=== PATIENT | female | born 1950 ===

== ENCOUNTER 2018-02-02 13:34 | Emergency (ER) | payer OTHER ==
[2018-02-02 14:30] LABS: BASO # 0.1 K/uL (0.0-0.2); BASO % 1.1 % (0.0-2.0); EOS # 0.1 K/uL (0.0-0.7); EOS % 1.4 % (0.0-4.0); HEMOGLOBIN 13.8 g/dL (11.0-16.0); LYMPH # 1.8 K/uL (1.0-4.3); LYMPH % 22.6 % (20.0-40.0); MEAN CELL VOLUME 88.4 fL (81.0-99.0); MEAN CORPUSCULAR HEMOGLOBIN 30.1 pg (27.0-31.0); MONO # 0.8 K/uL (0.0-0.8); MONO % 9.6 % (0.0-10.0); NEUT # 5.1 K/uL (1.8-7.0); NEUT % 65.3 % (50.0-75.0); NRBC % 0.1 % (0.0-2.0); RBC 4.59 Mil/uL (3.80-5.20); RED CELL DISTRIBUTION WIDTH 13.2 % (11.5-14.5); WHITE BLOOD COUNT 7.8 K/uL (4.8-10.8)
[2018-02-02 14:37] LABS: PROTHROMBIN TIME 11.5 SECONDS (9.7-12.2)
[2018-02-02 14:48] LABS: ALBUMIN 3.6 g/dL (3.5-5.0); CALCIUM 8.9 mg/dl (8.6-10.4)
--- NOTE | 2018-02-02 15:50 | C.PDOC ---
History Of Present Illness Pt c/o lower extremity pain R>L. Time Seen by Provider: 02/02/18 13:54 Chief Complaint (Nursing): Lower Extremity Problem/Injury History Per: Patient, Family Onset/Duration Of Symptoms: Days (years) Current Symptoms Are (Timing): Still Present Severity: Moderate Additional History Per: Prior Records Past Medical History Reviewed: Historical Data, Nursing Documentation, Vital Signs Vital Signs: Last Vital Signs Temp 99 F 02/02/18 15:12 Pulse 92 H 02/02/18 15:12 Resp 18 02/02/18 15:12 BP 189/110 H 02/02/18 15:12 Pulse Ox 95 02/02/18 15:12 - Medical History PMH: Diabetes, HTN, Hypercholesterolemia Family History: States: Unknown Family Hx - Social History Hx Alcohol Use: No Hx Substance Use: No - Immunization History Hx Tetanus Toxoid Vaccination: No Hx Influenza Vaccination: Yes (2016) Hx Pneumococcal Vaccination: No Review Of Systems Except As Marked, All Systems Reviewed And Found Negative. Constitutional: Negative for: Fever Cardiovascular: Negative for: Chest Pain Respiratory: Negative for: Shortness of Breath Gastrointestinal: Negative for: Abdominal Pain Genitourinary: Negative for: Dysuria, Incontinence Musculoskeletal: Positive for: Leg Pain. Negative for: Neck Pain, Back Pain Skin: Negative for: Rash Neurological: Negative for: Weakness, Numbness Physical Exam - Physical Exam Appears: Non-toxic, No Acute Distress Skin: Normal Color, Warm, Dry, No Rash Head: Atraumatic, Normacephalic Eye(s): bilateral: Normal Inspection, PERRL, EOMI Neck: Normal ROM, Supple Cardiovascular: Rhythm Regular Respiratory: Normal Breath Sounds, No Accessory Muscle Use Gastrointestinal/Abdominal: Soft, No Tenderness Back: No Vertebral Tenderness Extremity: Normal ROM, Tenderness (nonspecific), No Pedal Edema, No Deformity, No Swelling Extremity: Bilateral: Normal Color And Temperature Pulses: Left Dorsalis Pedis: Normal, Right Dorsalis Pedis: Normal Neurological/Psych: Oriented x3, Normal Motor, Normal Sensation ED Course And Treatment - Laboratory Results Result Diagrams: 02/02/18 14:25 02/02/18 14:25 Interpretation Of Abnormal: Mild renal insufficiency O2 Sat by Pulse Oximetry: 95 Pulse Ox Interpretation: Normal - CT Scan/US b/l LE duplex Other Rad Studies (CT/US): Radiology Report Reviewed CT/US Interpretation: Negative for DVT. Reassessment Condition: Improved Disposition Counseled Patient/Family Regarding: Studies Performed, Diagnosis, Need For Followup, Rx Given - Disposition Referrals: Davidson Peterson MD [Staff Provider] - Leonidas Arriaga III, MD [Staff Provider] - Disposition: HOME/ ROUTINE Disposition Time: 15:52 Condition: IMPROVED Additional Instructions: Take Tylenol as needed for pain. Follow up with a primary doctor and an dentofacial orthopedics dentist for further evaluation and treatment. Return to the ER if you develop redness, swelling, weakness, numbness, worsening of symptoms or if you have any other concerns. Prescriptions: Acetaminophen [Tylenol Extra Strength] 2 tab PO Q6 PRN #30 tablet PRN Reason: Pain, Moderate (4-7) Instructions: Muscle and Bone Pain (DC) Forms: [facility] (Polish), Gen Discharge Inst Polish Print Language: BRAZILIAN - Clinical Impression Clinical Impression: Lower extremity pain, Renal insufficiency, Hypertension
[2018-02-02 16:18] VITALS: BP 152/85; PULSE 85; TEMP 98.9; O2SAT 98
[2018-02-02 16:48] VITALS: RESP 17
--- NOTE | 2018-02-03 08:44 | VASCLAB ---
PROCEDURE: Lower Extremity Venous Duplex Exam. HISTORY: Pain R>L, r/o DVT PRIORS: None. TECHNIQUE: Bilateral common femoral, femoral, popliteal and posterior tibial, peroneal and great saphenous veins were evaluated. Flow was assessed with color Doppler, compressibility, assessment of phasic flow and augmentation response. Report prepared by Jerald Saleem, LYNDA, RVT FINDINGS: RIGHT: 1. Common Femoral Vein: 1.1. Compressibility - Fully compressible: Thrombus - None : Flow - Phasic: Augmentation -Normal: Reflux - None. 2. Femoral Vein: 2.1. Compressibility - Fully compressible: Thrombus - None : Flow - Phasic: Augmentation -Normal: Reflux - None. 3. Popliteal Vein: 3.1. Compressibility - Fully compressible: Thrombus - None : Flow - Phasic: Augmentation -Normal: Reflux - None. 4. Posterior Tibial Vein: 4.1. Compressibility - Fully compressible: Thrombus - None: Flow - Phasic: Augmentation -Normal: Reflux - None. 5. Peroneal Vein: 5.1. Compressibility - Fully compressible: Thrombus - None: Flow - Phasic: Augmentation -Normal: Reflux - None. 6. Great Saphenous Vein: 6.1. Compressibility - Fully compressible: Thrombus - None: Flow - Phasic: Augmentation - Normal: Reflux - None. LEFT: 1. Common Femoral Vein: 1.1. Compressibility - Fully compressible: Thrombus - None: Flow - Phasic: Augmentation -Normal: Reflux - None. 2. Femoral Vein: 2.1. Compressibility - Fully compressible: Thrombus - None: Flow - Phasic: Augmentation -Normal: Reflux - None. 3. Popliteal Vein: 3.1. Compressibility - Fully compressible: Thrombus - None : Flow - Phasic: Augmentation -Normal: Reflux - None. 4. Posterior Tibial Vein: 4.1. Compressibility - Fully compressible: Thrombus - None: Flow - Phasic: Augmentation -Normal: Reflux - None. 5. Peroneal Vein: 5.1. Compressibility - Fully compressible: Thrombus - None: Flow - Phasic: Augmentation -Normal: Reflux - None. 6. Great Saphenous Vein: 6.1. Compressibility - Fully compressible: Thrombus - None: Flow - Phasic: Augmentation - Normal: Reflux - None. OTHER FINDINGS: Right: None significant. Left: None significant. IMPRESSION: Right: No evidence of deep or superficial vein thrombosis of the right lower extremity. Normal valve function noted of the right side. Left: No evidence of deep or superficial vein thrombosis of the left lower extremity. Normal valve function noted of the left side.
== END 2018-02-02 16:48 | disposition home or self-care (01) ==
LOC: C.ER 13:34
DX: M79.604 Pain in right leg (principal); N28.9 Disorder of kidney and ureter, unspecified; I10 Essential (primary) hypertension; E11.9 Type 2 diabetes mellitus without complications; E78.00 Pure hypercholesterolemia, unspecified
CPT/HCPCS: 80053; 82948; 83735; 85025; 85610; 85730; 93970; 96374; 99285; J1885